=== PATIENT | female | born 1950 | race Caucasian/White ===

== ENCOUNTER 2016-07-09 13:34 | Inpatient (IN) | payer OTHER ==
[~2016-07-09] VITALS: Ht 165.1 cm; Wt 87.5 kg
[~2016-07-09 13:34] MED LIST: BUSPAR5 MG PO; CELEXA20 MG PO; LANTUS 10100 UNITS/ SC; LANTUS100 UNIT/1; LEXAPRO5 MG PO; Motrin PO; TENORMIN25 MG; TENORMIN25 MG PO
[2016-07-09 15:18] LABS: EOSINOPHIL (%) 1.8 % (0-5); EOSINOPHIL COUNT 0.2 K/uL (0-0.3); HEMATOCRIT 41.2 % (36.0-46.0); IMMATURE GRANULOCYTE (%) 0.6 % (0.0-0.7); IMMATURE GRANULOCYTE COUNT 0.6 K/uL; LYMPHOCYTE COUNT 3.3 K/uL (1.0-2.8); MCH 31.5 PG (29.0-34.0); MCHC 33.7 G/DL (30.0-36.0); MCV 93.4 FL (83-99); MONOCYTE (%) 8.2 % (3-12); MONOCYTE COUNT 0.9 K/uL (0-0.8); NEUTROPHIL (%) 57.8 % (45-76); NEUTROPHIL COUNT 6.1 K/uL (1.8-6.4); PLATELET COUNT 258 K/uL (156-360); RBC DIS.WIDTH-CV 12.4 % (11.8-14.6); RBC DIS.WIDTH-SD 41.4 % (39-53); RED BLOOD COUNT 4.41 M/uL (3.80-5.20); WHITE BLOOD COUNT 10.6 K/uL (4.1-10.2)
[2016-07-09 15:27] LABS: CHLORIDE 103 mEq/L (99-109); POTASSIUM 3.9 mEq/L (3.7-5.4); SODIUM 142 mEq/L (136-147)
[2016-07-09 15:29] LABS: GLUCOSE 147 mg/dL (70-99)
[2016-07-09 15:30] LABS: ANION GAP 11 MEQ/L (2-14)
[2016-07-09 15:33] LABS: GFR ESTIMATE (CALCULATED) > 59 mL/min/
[2016-07-09 15:34] LABS: UREA NITROGEN (BUN) 18 mg/dL (9-23)
[2016-07-09] MEDS ORDERED: CELEXA10 MG PO (16:38)
[2016-07-09] MEDS ORDERED: BUSPAR10 MG PO (16:39)
[2016-07-09] MEDS ORDERED: HUMALOG MI100 UNIT/6 SC (16:39)
[2016-07-09 18:45] VITALS: BP 144/73
[2016-07-09 20:46] VITALS: BP 140/70
[2016-07-09 22:44] LABS: POINT-OF-CARE METER ID UU14188577
[2016-07-10 00:06] VITALS: BP 134/60
[2016-07-10 04:48] VITALS: BP 136/82
[2016-07-10 06:26] LABS: POINT-OF-CARE METER ID UU14188577
[2016-07-10 07:33] VITALS: BP 134/63
[2016-07-10 08:05] LABS: ANION GAP 10 MEQ/L (2-14); CHLORIDE 102 MEQ/L (99-109); GFR ESTIMATE (CALCULATED) 59 mL/min/; GLUCOSE 138 mg/dL (70-99); POTASSIUM 4.2 MEQ/L (3.7-5.4); SAMPLE HEMOLYSIS CHECK 0; SAMPLE ICTERIC CHECK 0; SAMPLE LIPEMIA CHECK 0; SODIUM 140 MEQ/L (136-147); UREA NITROGEN (BUN) 26 mg/dL (9-23)
[2016-07-10 08:11] LABS: HEMATOCRIT 38.1 % (36.0-46.0); MCH 31.9 PG (29.0-34.0); MCHC 33.3 G/DL (30.0-36.0); MCV 95.7 FL (83-99); MEAN PLAT.VOLUME 10.2 uM^3 (9.5-12.4); PLATELET COUNT 216 K/uL (156-360); RBC DIS.WIDTH-CV 12.6 % (11.8-14.6); RBC DIS.WIDTH-SD 42.2 % (39-53); RED BLOOD COUNT 3.98 M/uL (3.80-5.20); WHITE BLOOD COUNT 8.8 K/uL (4.1-10.2)
[2016-07-10 09:06] LABS: Estimated Average Glucose 189 mg/dL (70-123); HEMOGLOBIN A1c (GLYCOHEMOGLOB) 8.2 % HGB (Below 5.7)
[2016-07-10 11:51] LABS: POINT-OF-CARE METER ID UU14188577
[2016-07-10 16:18] VITALS: BP 127/60
[2016-07-10 16:53] LABS: POINT-OF-CARE METER ID UU14188577
[2016-07-10 19:50] VITALS: BP 132/64
[2016-07-10 23:57] VITALS: BP 137/70
[2016-07-11 04:25] VITALS: BP 143/67
[2016-07-11 07:13] LABS: POINT-OF-CARE METER ID UU14188577
[2016-07-11 08:35] VITALS: BP 142/71
[2016-07-11] MEDS ORDERED: AUGMENTIN875 MG PO (12:21)
[2016-07-11] MEDS ORDERED: TRAMADOL HCL50 MG PO (12:29)
[2016-07-11 12:30] VITALS: BP 136/75
[2016-07-11 13:03] VITALS: BP 136/73
== END 2016-07-11 15:55 | disposition home or self-care (01) | DRG 603 ==
LOC: EME 13:34 → 3EAST 16:07 → EDOF 16:07 → 3EAST 17:36
PROVIDERS: Emergency Medicine; Hospitalist
DX: L03.114 Cellulitis of left upper limb (principal); K31.84 Gastroparesis; E11.43 Type 2 diabetes mellitus with diabetic autonomic (poly)neuropathy; E11.65 Type 2 diabetes mellitus with hyperglycemia; S61.052A Open bite of left thumb without damage to nail, initial encounter; B96.89 Other specified bacterial agents as the cause of diseases classified elsewhere; W55.01XA Bitten by cat, initial encounter; I10 Essential (primary) hypertension; F32.9 Major depressive disorder, single episode, unspecified; F41.9 Anxiety disorder, unspecified; L03.91 Acute lymphangitis, unspecified; Y99.0 Civilian activity done for income or pay; Z79.4 Long term (current) use of insulin; M79.7 Fibromyalgia; E66.9 Obesity, unspecified; Z68.32 Body mass index [BMI] 32.0-32.9, adult; Y92.59 Other trade areas as the place of occurrence of the external cause
CPT/HCPCS: 73140; 80048; 82948; 83036; 85025; 85027; 99281; 99285; J0295; J1644; J1815; J1885; J2405; J7050